=== PATIENT | female | born 1980 | race Caucasian/White ===

== ENCOUNTER 2019-06-01 14:18 | Emergency (ER) | payer OTHER ==
[2019-06-01 14:47] LABS: BILIRUBIN,URINE NEGATIVE (NEGATIVE); GLUCOSE, URINE (UA) NEGATIVE (NEGATIVE); KETONES,URINE (UA) NEGATIVE (NEGATIVE); LEUKOCYTE ESTERASE, URINE NEGATIVE (NEGATIVE); NITRITE,URINE NEGATIVE (NEGATIVE); OCCULT BLOOD,URINE NEGATIVE (NEGATIVE); PROTEIN,URINE NEGATIVE (NEGATIVE); UROBILINOGEN,URINE 0.2 (NORMAL) E.U./dL (NORMAL)
[2019-06-01 14:48] LABS: CLARITY,URINE HAZY (CLEAR)
[2019-06-01 14:49] LABS: HCG UR QUAL NEGATIVE
[2019-06-01 14:54] LABS: BACTERIA,URINE Many /HPF (None Seen); RBC,URINE 0-5 /HPF (0-5); SQUAMOUS EPITHELIAL CELL,UR MANY Squamous (<= Few)
--- NOTE | 2019-06-01 15:47 | ED Physician Documentation ---
History of Present Illness - Stated complaint Stated Complaint: FEVER - Chief complaint Chief Complaint: Fever - Additonal information Additional information: This is a 38-year-old female who is otherwise healthy who presents with 1 day of fever, body aches. She states that she woke up this morning and felt a little bit off, and then she developed a fever of 100.2 F followed by a fever of 100.8 F. She also developed body aches which are diffuse. She has some general malaise. She has had a bit of cough as well, no significant nasal congestion. No abdominal pain vomiting or diarrhea. She does not think she has dysuria but states she is a history of UTIs Review of Systems Constitutional: reports: Fever Nose: denies: Rhinorrhea / runny nose Respiratory: denies: Dyspnea PD PAST MEDICAL HISTORY - Present Medications Home Medications: Ambulatory Orders Medication Instructions Recorded Confirmed Acetaminophen 650 mg PO Q6HR #30 tablet 06/01/19 Ibuprofen [Ibu] 600 mg PO Q6H PRN #30 tablet 06/01/19 PD ED PE NORMAL - Vitals Vital signs reviewed: Yes - General General: Alert and oriented X 3, No acute distress - HEENT HEENT: PERRL - Neck Neck: Supple, no meningeal sign - Cardiac Cardiac: RRR - Respiratory Respiratory: No respiratory distress, Clear bilaterally - Abdomen Abdomen: Normal bowel sounds, Soft, Non tender, Non distended - Back Back: No spinal TTP - Derm Derm: Warm and dry - Extremities Extremities: No deformity - Neuro Neuro: Alert and oriented X 3, sider mechanic 2-12 intact, No motor deficit - Psych Psych: Normal mood, Normal affect Results - Vitals Vitals: Vital Signs - 24 hr 06/01/19 06/01/19 14:31 16:22 Temperature 37.7 C H 38.5 C H Heart Rate 92 79 Respiratory 18 16 Rate Blood Pressure 111/46 L 93/52 L O2 Saturation 99 98 Oxygen O2 Source Room air - Labs Labs: Laboratory Tests 06/01/19 06/01/19 14:10 15:30 Urine Color YELLOW Urine Clarity HAZY Urine pH 7.0 Ur Specific Clements 1.015 Urine Protein NEGATIVE Urine Glucose (UA) NEGATIVE Urine Ketones NEGATIVE Urine Occult Blood NEGATIVE Urine Nitrite NEGATIVE Urine Bilirubin NEGATIVE Urine Urobilinogen 0.2 (NORMAL) Ur Leukocyte Esterase NEGATIVE Urine RBC 0-5 Urine WBC 0-3 Ur Squamous Epith Cells MANY Squamous H Urine Bacteria Many H Ur Microscopic Review INDICATED Urine Culture Comments NOT INDICATED Urine HCG, Qual NEGATIVE Influenza A (Rapid) Negative Influenza B (Rapid) Negative PD MEDICAL DECISION MAKING - ED course ED course: Pt is well appearing, vitals unremarkable, no signs of pneumonia, otitis, or other bacterial infection requiring antibiotics. Urine negative for UTI. Flu swab negative and symptoms inconsistent with strep. I discussed supportive care, and prescribed symptomatic control medications. Return precautions and follow up discussed and pt discharged. Pt is very well appearing at the time of discharge. Departure - Departure Disposition: 01 Home, Self Care Clinical Impression: Viral syndrome Condition: Good Instructions: ED Viral Syndrome Follow-Up: Sarah Calderon MD [Primary Care Provider] - (As needed for persistent symptoms) Prescriptions: Acetaminophen 650 mg PO Q6HR #30 tablet Ibuprofen [Ibu] 600 mg PO Q6H PRN #30 tablet PRN Reason: Pain Comments: You appear to have a viral illness. You may take Tylenol ibuprofen for fever and pain. Drink plenty of fluids and get rest. You are contagious so make sure that people around you are washing her hands. Return to the emergency department if you are developing new or worsening symptoms. Discharge Date/Time: 06/01/19 16:23
[2019-06-01] MEDS ORDERED: ACETAMINOPHEN 325 MG TABLET PO STA (16:20)
[2019-06-01] MEDS ORDERED: IBUPROFEN 600 MG TABLET PO STA (16:20)
[2019-06-01 16:23] VITALS: BP 93/52
== END 2019-06-01 16:23 | disposition home or self-care (01) ==
LOC: ED 14:18
DX: B34.9 Viral infection, unspecified (principal)
CPT/HCPCS: 81001; 81003; 81025; 87086; 87275; 87276; 99283